=== PATIENT | female | born 1990 | race Caucasian/White ===

== ENCOUNTER 2017-12-24 21:00 | Inpatient (IN) | payer BC ==
[2017-12-24 21:59] VITALS: BMI 29.5
[2017-12-24] MEDS ORDERED: Misoprostol 100 MCG TAB ONE (22:02)
[2017-12-24] MEDS ORDERED: LR / Pitocin 40 units/1000 ml 1,000 ML IV PRN (22:18)
[2017-12-24] MEDS ORDERED: Lidocaine 1% (PF) 30 ML VIAL SC PRN (22:18)
[2017-12-24] MEDS ORDERED: LR 500 ML/Oxytocin 10 units 500 ML IV SCH (22:30)
[2017-12-24] MEDS: Misoprostol 100 MCG TAB VAG SCH (22:45)
[2017-12-24 22:59] LABS: Hemoglobin 10.7 g/dL (12.0-16.0); Mean Corpuscular HGB CONC 34.7 g/dL (32.0-36.0); Mean Corpuscular Hemoglobin 29.1 pg (27.0-31.0); Mean Corpuscular Volume 83.8 fl (81.0-99.0); Platelet Count 216 thou/uL (130-400); RBC Distribution Width 12.5 % (11.5-14.5); Red Blood Cell (RBC) Count 3.67 mill/uL (4.20-5.40)
[2017-12-24 23:33] LABS: HBSAg Index 0.21 S/CO (0-0.99); Hep B Surf Ag Non-Reactive S/CO (NonReactive); Syphilis Antibody Nonreactive (Nonreactive); Syphilis Antibody Index 0.03 S/CO (<1.00 Non-Reactive)
[2017-12-25] MEDS ORDERED: DISCONTINUE ALL PREVIOUS NARCOTICS FS SCH (07:15)
[2017-12-25] MEDS ORDERED: Bupivacaine 0.5% 20 ML, fentaNYL Citrate/PF 400 MCG in Sodium Chloride 0.9% 72 ML EPIDURAL SCH (07:15)
[2017-12-25] MEDS ORDERED: ePHEDrine/0.9% NaCl/PF SYRINGE 50 mg/10 ml SLOW IVP PRN (07:45)
[2017-12-25] MEDS ORDERED: Acetaminophen 325 MG TAB PO PRN (07:45)
[2017-12-25] MEDS ORDERED: Lactated Ringer's 500 ML IV PRN (07:45)
[2017-12-25] MEDS ORDERED: Communication Order-Pharmacy FS SCH (07:45)
[2017-12-25] MEDS ORDERED: Eucerin (Mineral Oil/Petrolatum,White) 30 gm Jar TOP PRN (07:45)
[2017-12-25] MEDS ORDERED: Naloxone HCl 0.4 mg/ml Vial IVP PRN ×2 (07:45)
[2017-12-25] MEDS ORDERED: Fentanyl 4mcg/Marcaine 0.1% Cassette 100 ML EPIDURAL SCH (07:45)
[2017-12-25] MEDS: Misoprostol 100 MCG TAB VAG SCH (07:49)
[2017-12-25] MEDS ORDERED: Lactated Ringer's 1,000 ML IV SCH (08:30)
[2017-12-25] MEDS ORDERED: Bupivacaine 0.25% HCL 30 ML VIAL ONE (11:11)
[2017-12-25] MEDS ORDERED: traMADol HCl 50 MG TAB PO PRN ×2 (13:13)
[2017-12-25] MEDS ORDERED: Ondansetron PF 4 MG/2 ML Vial IVP PRN (13:13)
[2017-12-25] MEDS ORDERED: Adacel (T-DAP) 0.5 ML VIAL IM ONE (13:13)
[2017-12-25] MEDS ORDERED: Lanolin Ointment 7 GM TUBE TOP PRN (13:13)
[2017-12-25] MEDS ORDERED: Promethazine HCl 25 MG/ML VIAL IM PRN (13:13)
[2017-12-25] MEDS ORDERED: diphenhydrAMINE 25 MG CAP PO PRN (13:13)
[2017-12-25] MEDS ORDERED: Preparation H Ointment 28 GM TUBE PR PRN (13:13)
[2017-12-25] MEDS ORDERED: Zolpidem Tartrate 5 MG TAB PO PRN (13:13)
[2017-12-25] MEDS ORDERED: Milk Of Magnesia 30 ML UDCUP PO PRN (13:13)
[2017-12-25] MEDS ORDERED: Benzocaine/Menthol 20-0.5% 60 ML CAN TOP PRN (13:13)
[2017-12-25] MEDS ORDERED: Bisacodyl 10 MG SUPP PR PRN (13:13)
[2017-12-25] MEDS ORDERED: LR / Pitocin 40 units/1000 ml 1,000 ML IV SCH (13:15)
[2017-12-25] MEDS: Ibuprofen 800 MG TAB PO SCH ×2 (14:22→21:23)
[2017-12-25] MEDS: Ferrous Sulfate 325 MG TAB PO SCH (18:05)
[2017-12-25] MEDS: Docusate Calcium (SURFAK) 240 MG CAP PO SCH (19:26)
[2017-12-26] MEDS: Ibuprofen 800 MG TAB PO SCH ×3 (06:22→20:54)
[2017-12-26] MEDS: Ferrous Sulfate 325 MG TAB PO SCH ×2 (07:32→15:52)
[2017-12-26] MEDS: Prenatal Vitamin 1 TAB PO SCH (09:00)
[2017-12-26] MEDS: Docusate Calcium (SURFAK) 240 MG CAP PO SCH ×2 (09:00→20:54)
[2017-12-27] MEDS: Ibuprofen 800 MG TAB PO SCH (05:04)
[2017-12-27 07:53] VITALS: BP 124/78; TEMP 98.4
[2017-12-27] MEDS: Prenatal Vitamin 1 TAB PO SCH (09:10)
[2017-12-27] MEDS: Ferrous Sulfate 325 MG TAB PO SCH (09:10)
[2017-12-27] MEDS: Docusate Calcium (SURFAK) 240 MG CAP PO SCH (09:10)
== END 2017-12-27 12:30 | disposition home or self-care (01) | DRG 775 ==
LOC: L&D 21:05 → 3SW 12-25 15:23
PROVIDERS: ADMIT Obstetrics & Gynecology; ATTEND Obstetrics & Gynecology
PROC: 10E0XZZ Delivery of Products of Conception, External Approach (ICD-10-PCS; principal; 2017-12-25)
PROC: 0KQM0ZZ Repair Perineum Muscle, Open Approach (ICD-10-PCS; 2017-12-25)
PROC: 10907ZC Drainage of Amniotic Fluid, Therapeutic from Products of Conception, Via Natural or Artificial Opening (ICD-10-PCS; 2017-12-25)
DX: O99.02 Anemia complicating childbirth (principal); D64.9 Anemia, unspecified; Z37.0 Single live birth; O70.1 Second degree perineal laceration during delivery; Z3A.40 40 weeks gestation of pregnancy; O77.0 Labor and delivery complicated by meconium in amniotic fluid
CPT/HCPCS: 51702; 85027; 86780; 87340; 90715; J3010; J3490; J7050; J7120; S0020